=== PATIENT | female | born 1960 | race Caucasian/White ===

== ENCOUNTER → 2016-08-21 | Outpatient (CLI) | payer OTHER ==
[2016-08-21 09:44] LABS: Basophils # (auto) 0 uL; Basophils % (auto) 0.7 % (0.0-2.0); Eosinophils # (auto) 0 uL; Eosinophils % (auto) 0.6 % (0.0-7.0); Hematocrit 39.8 % (36.0-46.0); Hemoglobin 13.4 g/dL (12.2-16.2); Lymphocytes # (auto) 1.4 uL; Lymphocytes % (auto) 48.9 % (10.0-50.0); Mean Corpuscular Hemoglobin 29.6 pg (28.0-32.0); Mean Corpuscular Hgb Conc. 33.5 g/dL (32.0-36.0); Mean Corpuscular Volume 88.2 fL (80.0-100.0); Mean Platelet Volume 8.7 fL (7.4-10.4); Monocytes # (auto) 0.2 uL; Monocytes % (auto) 7.3 % (0.0-12.0); Neutrophils # (auto) 1.2 uL; Neutrophils % (auto) 42.5 % (37.0-80.0); Platelet Count (auto) 310 10^3/uL (140-450); Red Cell Distribution Width 13.7 % (11.6-16.0); White Blood Cell 2.8 10^3/uL (4.4-10.8)
[2016-08-21 10:30] LABS: Albumin 4.2 g/dL (3.4-5.0); BUN/Creatinine Ratio 20.3; Bilirubin, Total 0.5 mg/dL (0.2-1.0); Calcium 8.8 mg/dL (8.5-10.1); Potassium 4.2 mmol/L (3.5-5.1); Total Protein 8.4 g/dL (6.4-8.2)
== END | disposition home or self-care (01) ==
LOC: LAB 08:57
DX: M25.50 Pain in unspecified joint (principal); M25.00 Hemarthrosis, unspecified joint; Z79.899 Other long term (current) drug therapy; D64.9 Anemia, unspecified; I10 Essential (primary) hypertension
CPT/HCPCS: 36415; 80053; 85025; 85652; 86141

== ENCOUNTER → 2016-09-27 | Outpatient (CLI) | payer OTHER ==
[2016-09-27 08:42] LABS: Basophils # (auto) 0 uL; Basophils % (auto) 0.8 % (0.0-2.0); Eosinophils # (auto) 0.1 uL; Eosinophils % (auto) 4.5 % (0.0-7.0); Hematocrit 39.2 % (36.0-46.0); Hemoglobin 13.2 g/dL (12.2-16.2); Lymphocytes # (auto) 0.9 uL; Lymphocytes % (auto) 28.1 % (10.0-50.0); Mean Corpuscular Hemoglobin 29.9 pg (28.0-32.0); Mean Corpuscular Hgb Conc. 33.6 g/dL (32.0-36.0); Mean Platelet Volume 8.8 fL (7.4-10.4); Monocytes # (auto) 0.3 uL; Neutrophils # (auto) 1.7 uL; Neutrophils % (auto) 56.6 % (37.0-80.0); Platelet Count (auto) 296 10^3/uL (140-450); Red Cell Distribution Width 13.8 % (11.6-16.0)
[2016-09-27 09:06] LABS: Cholesterol 221 mg/dL (< 200); HDL Cholesterol 64 mg/dL (40-59); LDL Cholesterol 147 mg/dL (< 100); Triglycerides 58 mg/dL (< 150)
== END | disposition home or self-care (01) ==
LOC: LAB 08:03
PROVIDERS: ATTEND Internal Medicine
DX: R73.01 Impaired fasting glucose (principal); D72.819 Decreased white blood cell count, unspecified; R61 Generalized hyperhidrosis
CPT/HCPCS: 36415; 80061; 82306; 83001; 83036; 84439; 84443; 85025

== ENCOUNTER 2016-11-02 08:14 | Day surgery (SDC) | payer OTHER ==
[2016-10-30 12:27] LABS: Basophils # (auto) 0 uL; Basophils % (auto) 0.7 % (0.0-2.0); Eosinophils # (auto) 0.1 uL; Eosinophils % (auto) 2.7 % (0.0-7.0); Hematocrit 40.3 % (36.0-46.0); Hemoglobin 13.4 g/dL (12.2-16.2); Lymphocytes # (auto) 1.4 uL; Lymphocytes % (auto) 42.6 % (10.0-50.0); Mean Corpuscular Hemoglobin 29.5 pg (28.0-32.0); Mean Corpuscular Hgb Conc. 33.3 g/dL (32.0-36.0); Mean Corpuscular Volume 88.8 fL (80.0-100.0); Mean Platelet Volume 9.2 fL (7.4-10.4); Monocytes # (auto) 0.3 uL; Monocytes % (auto) 10.7 % (0.0-12.0); Neutrophils # (auto) 1.4 uL; Neutrophils % (auto) 43.3 % (37.0-80.0); Platelet Count (auto) 327 10^3/uL (140-450); Red Cell Distribution Width 13.8 % (11.6-16.0); White Blood Cell 3.3 10^3/uL (4.4-10.8)
[2016-10-30 12:48] LABS: INR 0.98 (0.9-1.15); Partial Thromboplastin Time 27.2 sec (22.64-33.71); Prothrombin Time 10.6 sec (9.37-12.3)
[~2016-11-02] VITALS: Ht 170.2 cm; Wt 90.7 kg
[~2016-11-02 08:14] MED LIST: HYDR200T PO; LEVO100T8 PO
[2016-11-02] MEDS ORDERED: diphenhdrAMINE HCL 50 MG/1 ML VL ONE (08:16)
[2016-11-02] MEDS ORDERED: SODIUM CHLORIDE LOCK 10 ML ONE (08:16)
[2016-11-02] MEDS: MIDAZOLAM HCL 5 MG/ML-1ML VIAL ONE ×2 (09:02→09:10)
[2016-11-02] MEDS: fentaNYL CITRATE 100 MCG/2 ML VL ONE ×2 (09:02→09:10)
[2016-11-02 10:10] VITALS: BP 121/75
== END 2016-11-02 10:10 | disposition home or self-care (01) ==
LOC: GI 08:14
PROVIDERS: ATTEND Internal Medicine Gastroenterology
DX: Z12.11 Encounter for screening for malignant neoplasm of colon (principal); K64.4 Residual hemorrhoidal skin tags; K64.8 Other hemorrhoids; K57.30 Diverticulosis of large intestine without perforation or abscess without bleeding; J45.909 Unspecified asthma, uncomplicated
CPT/HCPCS: 36415; 45378; 85025; 85610; 85730; J1200; J2250; J3010; J7030

== ENCOUNTER → 2017-10-11 | Outpatient (CLI) | payer OTHER ==
[2017-10-11 10:31] LABS: Basophils # (auto) 0 uL; Eosinophils # (auto) 0.1 uL; Eosinophils % (auto) 1.9 % (0.0-7.0); Hematocrit 39.6 % (36.0-46.0); Hemoglobin 13.2 g/dL (12.2-16.2); Lymphocytes # (auto) 0.7 uL; Lymphocytes % (auto) 20.7 % (10.0-50.0); Mean Corpuscular Hemoglobin 29.9 pg (28.0-32.0); Mean Corpuscular Hgb Conc. 33.2 g/dL (32.0-36.0); Mean Corpuscular Volume 90.2 fL (80.0-100.0); Monocytes # (auto) 0.3 uL; Monocytes % (auto) 9.3 % (0.0-12.0); Neutrophils # (auto) 2.3 uL; Neutrophils % (auto) 67.1 % (37.0-80.0); Nucleated Red Blood Cells % 0.1 %; Platelet Count (auto) 256 10^3/uL (140-450); Red Blood Cells 4.39 10^6/uL (4.0-5.20); Red Cell Distribution Width 13.9 % (11.8-14.3); White Blood Cell 3.4 10^3/uL (4.4-10.8)
[2017-10-11 10:38] LABS: Urine Bacteria NONE SEEN /hpf (None Seen); Urine Blood Negative /uL (Negative); Urine Specific Gravity 1.025 (1.001-1.035); Urine WBC <1 /hpf (0 - 5)
[2017-10-11 12:00] LABS: Albumin 4.1 g/dL (3.4-5.0); Bilirubin, Total 0.5 mg/dL (0.2-1.0); CRP High Sensitivity 1.78 mg/dL (< 0.3); Potassium 4.4 mmol/L (3.5-5.1); Total Protein 8.7 g/dL (6.4-8.2); Uric Acid 3.5 mg/dL (2.6-6.0)
== END | disposition home or self-care (01) ==
LOC: LAB 10:11
PROVIDERS: ATTEND Internal Medicine
DX: J20.2 Acute bronchitis due to streptococcus (principal); N39.41 Urge incontinence; M25.50 Pain in unspecified joint; E03.9 Hypothyroidism, unspecified; I10 Essential (primary) hypertension; Z79.899 Other long term (current) drug therapy
CPT/HCPCS: 36415; 80053; 80061; 81001; 84439; 84443; 84550; 85025; 85652; 86141; 86225; 86235

== ENCOUNTER → 2018-02-27 | Outpatient (CLI) | payer OTHER ==
[~2018-02-27] MED LIST changes: +HYDR-4441 PO; -HYDR200T PO
[2018-02-27 10:52] LABS: Basophils # (auto) 0 uL; Basophils % (auto) 1.1 % (0.0-2.0); Eosinophils # (auto) 0 uL; Eosinophils % (auto) 1.4 % (0.0-7.0); Hematocrit 39.6 % (36.0-46.0); Lymphocytes # (auto) 1.1 uL; Lymphocytes % (auto) 48.5 % (10.0-50.0); Mean Corpuscular Hemoglobin 29.5 pg (28.0-32.0); Mean Corpuscular Hgb Conc. 32.8 g/dL (32.0-36.0); Mean Corpuscular Volume 90.2 fL (80.0-100.0); Monocytes # (auto) 0.2 uL; Neutrophils # (auto) 0.9 uL; Nucleated Red Blood Cells % 0.1 %; Platelet Count (auto) 304 10^3/uL (140-450); Red Blood Cells 4.39 10^6/uL (4.0-5.20); Red Cell Distribution Width 13.6 % (11.8-14.3); White Blood Cell 2.3 10^3/uL (4.4-10.8)
[2018-02-27 11:17] LABS: Creatine Kinase IFCC 302 U/L (26-192); Lactate Dehydrogenase 173 U/L (84-246)
[2018-02-27 11:20] LABS: Free T4 (Free Thyroxine) 1.34 ng/dL (0.89-1.76)
[2018-03-05 10:07] LABS: AChR Blocking Abs, Serum 16 % (0-25)
== END | disposition home or self-care (01) ==
LOC: LAB 09:55
PROVIDERS: ATTEND Internal Medicine
DX: E03.9 Hypothyroidism, unspecified (principal); D72.819 Decreased white blood cell count, unspecified; M79.1 Myalgia
CPT/HCPCS: 36415; 82306; 82550; 82607; 83615; 84439; 84443; 85025; 86200; 86431

== ENCOUNTER → 2018-03-27 | Outpatient (CLI) | payer OTHER | END | disposition home or self-care (01) | LOC: XYW 08:08 | PROVIDERS: ATTEND Internal Medicine | DX: R06.00 Dyspnea, unspecified (principal) | CPT/HCPCS: 93306 ==

== ENCOUNTER → 2018-10-16 | Outpatient (CLI) | payer OTHER ==
[2018-10-16 12:43] LABS: Hematocrit 40.3 % (36.0-46.0); Hemoglobin 13.5 g/dL (12.2-16.2); Mean Corpuscular Hemoglobin 30.2 pg (28.0-32.0); Mean Corpuscular Hgb Conc. 33.6 g/dL (32.0-36.0); Mean Corpuscular Volume 89.9 fL (80.0-100.0); Platelet Count (auto) 277 10^3/uL (140-450); Red Blood Cells 4.48 10^6/uL (4.0-5.20); Red Cell Distribution Width 13.2 % (11.8-14.3); White Blood Cell 2.4 10^3/uL (4.4-10.8)
[2018-10-16 13:02] LABS: Band Neutrophils % (manual) 0; Basophils % (manual) 0 (0.0-2.0); Blast Cells 0; Metamyelocytes % 0; Myelocytes % 0; Promyelocytes % 0; Reactive Lymphocytes 0
[2018-10-16 13:09] LABS: Urine Bacteria NONE SEEN /hpf (None Seen); Urine Blood 3+ /uL (Negative); Urine Mucus FEW (None Seen); Urine Specific Gravity 1.021 (1.001-1.035); Urine WBC 5 /hpf (0 - 5)
[2018-10-16 13:30] LABS: Albumin 4.2 g/dL (3.4-5.0); Potassium 3.8 mmol/L (3.5-5.1)
[2018-10-16 13:37] LABS: BUN/Creatinine Ratio 15.2; Bilirubin, Total 0.5 mg/dL (0.2-1.0); Total Protein 8.2 g/dL (6.4-8.2)
[2018-10-16 15:47] LABS: Eosinophils % (manual) 2 (0-7); Lymphocytes % (manual) 60 (10.0-50.0); Monocytes % (manual) 4 (0-12)
== END | disposition home or self-care (01) ==
LOC: LAB 11:42
PROVIDERS: ATTEND Internal Medicine
DX: D72.819 Decreased white blood cell count, unspecified (principal); M06.9 Rheumatoid arthritis, unspecified; M25.50 Pain in unspecified joint
CPT/HCPCS: 36415; 80053; 80061; 81001; 82043; 83615; 84439; 84443; 85007; 85027; 85652; 86200

== ENCOUNTER → 2018-12-11 | Outpatient (CLI) | payer OTHER ==
[2018-12-11 10:00] LABS: Basophils # (auto) 0 uL; Basophils % (auto) 0.9 % (0.0-2.0); Eosinophils # (auto) 0 uL; Eosinophils % (auto) 1.1 % (0.0-7.0); Hematocrit 38.7 % (36.0-46.0); Hemoglobin 12.8 g/dL (12.2-16.2); Lymphocytes % (auto) 43.6 % (10.0-50.0); Mean Corpuscular Hemoglobin 30.1 pg (28.0-32.0); Mean Corpuscular Hgb Conc. 33.1 g/dL (32.0-36.0); Monocytes # (auto) 0.2 uL; Monocytes % (auto) 10.9 % (0.0-12.0); Neutrophils % (auto) 43.5 % (37.0-80.0); Nucleated Red Blood Cells % 0.1 %; Platelet Count (auto) 260 10^3/uL (140-450); Red Blood Cells 4.25 10^6/uL (4.0-5.20); Red Cell Distribution Width 14.1 % (11.8-14.3); White Blood Cell 2.2 10^3/uL (4.4-10.8)
[2018-12-11 10:50] LABS: Potassium 4.2 mmol/L (3.5-5.1)
[2018-12-11 10:58] LABS: BUN/Creatinine Ratio 14.7; Bilirubin, Total 0.5 mg/dL (0.2-1.0); Calcium 8.9 mg/dL (8.5-10.1); Total Protein 7.8 g/dL (6.4-8.2)
== END | disposition home or self-care (01) ==
LOC: LAB 09:19
PROVIDERS: ATTEND Internal Medicine
DX: M75.81 Other shoulder lesions, right shoulder (principal)
CPT/HCPCS: 36415; 80053; 83615; 85025; 86038

== ENCOUNTER → 2019-12-10 | Outpatient (CLI) | payer OTHER ==
[~2019-12-10] MED LIST changes: +HYDR-4188 PO; -HYDR-4441 PO
[2019-12-10 12:33] LABS: Basophils # (auto) 0 10 ^3/uL (0-0.2); Basophils % (auto) 1.7 % (0.0-2.0); Eosinophils # (auto) 0 10 ^3/uL (0-0.8); Eosinophils % (auto) 1.3 % (0.0-7.0); Hematocrit 39.7 % (36.0-46.0); Hemoglobin 13.2 g/dL (12.2-16.2); Lymphocytes # (auto) 1.1 10 ^3/uL (0.4-5.4); Lymphocytes % (auto) 45.4 % (10.0-50.0); Mean Corpuscular Hemoglobin 29.7 pg (28.0-32.0); Mean Corpuscular Hgb Conc. 33.2 g/dL (32.0-36.0); Mean Corpuscular Volume 89.5 fL (80.0-100.0); Monocytes # (auto) 0.2 10 ^3/uL (0-1.3); Monocytes % (auto) 9.4 % (0.0-12.0); Neutrophils % (auto) 42.2 % (37.0-80.0); Nucleated Red Blood Cells % 0.1 %; Platelet Count (auto) 285 10^3/uL (140-450); Red Blood Cells 4.43 10^6/uL (4.0-5.20); Red Cell Distribution Width 13.8 % (11.8-14.3); White Blood Cell 2.5 10^3/uL (4.4-10.8)
[2019-12-10 12:41] LABS: Urine Bacteria NONE SEEN /hpf (None Seen); Urine Blood Negative /uL (Negative); Urine Mucus FEW (None Seen); Urine Specific Gravity 1.021 (1.001-1.035); Urine WBC 1 /hpf (0 - 5)
[2019-12-10 13:33] LABS: Albumin 4.2 g/dL (3.4-5.0); BUN/Creatinine Ratio 14.3; Bilirubin, Total 0.6 mg/dL (0.2-1.0); Total Protein 8.1 g/dL (6.4-8.2)
== END | disposition home or self-care (01) ==
LOC: LAB 11:57
PROVIDERS: ATTEND Internal Medicine
DX: D72.819 Decreased white blood cell count, unspecified (principal); M32.9 Systemic lupus erythematosus, unspecified
CPT/HCPCS: 36415; 80053; 80061; 81001; 84439; 84443; 85025; 85652; 86225; 86235

== ENCOUNTER → 2020-12-02 | Outpatient (CLI) | payer OTHER ==
[2020-12-02 11:07] LABS: Hematocrit 38.1 % (36.0-46.0); Hemoglobin 13.1 g/dL (12.2-16.2); Mean Corpuscular Hemoglobin 30.6 pg (28.0-32.0); Mean Corpuscular Hgb Conc. 34.3 g/dL (32.0-36.0); Mean Corpuscular Volume 89.2 fL (80.0-100.0); Platelet Count (auto) 247 10^3/uL (140-450); Red Blood Cells 4.27 10^6/uL (4.0-5.20); Red Cell Distribution Width 13.6 % (11.8-14.3); White Blood Cell 2.4 10^3/uL (4.4-10.8)
[2020-12-02 11:14] LABS: Band Neutrophils % (manual) 0; Basophils % (manual) 0 (0.0-2.0); Blast Cells 0; Metamyelocytes % 0; Myelocytes % 0; Promyelocytes % 0; Reactive Lymphocytes 0; Urine Bacteria NONE SEEN /hpf (None Seen); Urine Blood Negative /uL (Negative); Urine WBC <1 /hpf (0 - 5)
[2020-12-02 11:45] LABS: BUN/Creatinine Ratio 14.8; Bilirubin, Total 0.4 mg/dL (0.2-1.0); Total Protein 7.9 g/dL (6.4-8.2)
[2020-12-02 12:03] LABS: Eosinophils % (manual) 2 (0-7); Lymphocytes % (manual) 61 (10.0-50.0); Monocytes % (manual) 6 (0-12)
== END | disposition home or self-care (01) ==
LOC: LAB 10:47
PROVIDERS: ATTEND Internal Medicine
DX: E03.9 Hypothyroidism, unspecified (principal); M35.00 Sjogren syndrome, unspecified
CPT/HCPCS: 36415; 80053; 80061; 81001; 84439; 84443; 85007; 85027; 85652; 86225; 86235

== ENCOUNTER → 2021-06-29 | Outpatient (CLI) | payer OTHER ==
[2021-06-29 11:31] LABS: Basophils # (auto) 0 10 ^3/uL (0-0.2); Basophils % (auto) 1.3 % (0.0-2.0); Eosinophils # (auto) 0 10 ^3/uL (0-0.8); Eosinophils % (auto) 1.3 % (0.0-7.0); Hematocrit 39.2 % (36.0-46.0); Hemoglobin 13.1 g/dL (12.2-16.2); Lymphocytes # (auto) 1.2 10 ^3/uL (0.4-5.4); Lymphocytes % (auto) 44.5 % (10.0-50.0); Mean Corpuscular Hemoglobin 30.2 pg (28.0-32.0); Mean Corpuscular Hgb Conc. 33.5 g/dL (32.0-36.0); Mean Corpuscular Volume 90.2 fL (80.0-100.0); Monocytes # (auto) 0.2 10 ^3/uL (0-1.3); Monocytes % (auto) 8.5 % (0.0-12.0); Neutrophils # (auto) 1.2 10 ^3/uL (1.6-8.6); Neutrophils % (auto) 44.4 % (37.0-80.0); Nucleated Red Blood Cells % 0.1 %; Red Blood Cells 4.35 10^6/uL (4.0-5.20); Red Cell Distribution Width 14.3 % (11.8-14.3); White Blood Cell 2.6 10^3/uL (4.4-10.8)
[2021-06-29 12:01] LABS: Urine Bacteria NONE SEEN /hpf (None Seen); Urine Blood Negative /uL (Negative); Urine Specific Gravity 1.015 (1.001-1.035); Urine WBC 1 /hpf (0 - 5)
[2021-06-29 12:02] LABS: Albumin 4.2 g/dL (3.4-5.0); Calcium 8.9 mg/dL (8.5-10.1); Potassium 4.6 mmol/L (3.5-5.1)
[2021-06-29 12:05] LABS: BUN/Creatinine Ratio 12.7; Bilirubin, Total 0.5 mg/dL (0.2-1.0); CRP High Sensitivity 0.08 mg/dL (< 0.3); Total Protein 7.7 g/dL (6.4-8.2)
== END | disposition home or self-care (01) ==
LOC: LAB 10:48
PROVIDERS: ATTEND Internal Medicine Rheumatology
DX: M32.10 Systemic lupus erythematosus, organ or system involvement unspecified (principal)
CPT/HCPCS: 36415; 80053; 81001; 82085; 82550; 85025; 85652; 86141; 86160

== ENCOUNTER → 2021-12-23 | Outpatient (CLI) | payer OTHER ==
[2021-12-23 11:17] LABS: Urine Bacteria NONE SEEN /hpf (None Seen); Urine Blood Negative /uL (Negative); Urine Specific Gravity 1.007 (1.001-1.035); Urine WBC <1 /hpf (0 - 5)
[2021-12-23 11:33] LABS: Cholesterol 246 mg/dL (< 200); HDL Cholesterol 75 mg/dL (40-59); LDL Cholesterol 158 mg/dL (< 100); Triglycerides 62 mg/dL (< 150)
[2021-12-23 11:35] LABS: Free T4 (Free Thyroxine) 1.23 ng/dL (0.89-1.76)
[2021-12-23 11:44] LABS: Thyroid Stimulating Hormone 2.69 uIU/mL (0.358-3.74)
== END | disposition home or self-care (01) ==
LOC: LAB 10:45
PROVIDERS: ATTEND Internal Medicine
DX: D72.819 Decreased white blood cell count, unspecified (principal); E03.9 Hypothyroidism, unspecified; E55.9 Vitamin D deficiency, unspecified
CPT/HCPCS: 36415; 80061; 81001; 82306; 82607; 83615; 84439; 84443

== ENCOUNTER → 2022-06-20 | Outpatient (CLI) | payer OTHER ==
[2022-06-20 10:30] LABS: Urine WBC None Seen /hpf (0 - 5)
[2022-06-20 11:17] LABS: Urine Bacteria NONE SEEN /hpf (None Seen); Urine Blood Negative /uL (Negative); Urine Mucus FEW (None Seen); Urine Specific Gravity 1.017 (1.001-1.035)
== END | disposition home or self-care (01) ==
LOC: LAB 10:14
PROVIDERS: ATTEND Internal Medicine
DX: D17.1 Benign lipomatous neoplasm of skin and subcutaneous tissue of trunk (principal); N39.0 Urinary tract infection, site not specified
CPT/HCPCS: 36415; 81001; 82565; 84520; 87086

== ENCOUNTER → 2022-08-08 | Outpatient (CLI) | payer OTHER ==
[2022-08-08 08:57] LABS: Urine WBC None Seen /hpf (0 - 5)
[2022-08-08 09:01] LABS: Basophils # (auto) 0 10 ^3/uL (0-0.2); Basophils % (auto) 1.5 % (0.0-2.0); Eosinophils # (auto) 0 10 ^3/uL (0-0.8); Eosinophils % (auto) 1.6 % (0.0-7.0); Hematocrit 37.6 % (36.0-46.0); Hemoglobin 12.5 g/dL (12.2-16.2); Lymphocytes # (auto) 1.1 10 ^3/uL (0.4-5.4); Lymphocytes % (auto) 44.3 % (10.0-50.0); Mean Corpuscular Hemoglobin 30.1 pg (28.0-32.0); Mean Corpuscular Hgb Conc. 33.1 g/dL (32.0-36.0); Mean Corpuscular Volume 90.9 fL (80.0-100.0); Monocytes # (auto) 0.2 10 ^3/uL (0-1.3); Monocytes % (auto) 8.4 % (0.0-12.0); Neutrophils # (auto) 1.1 10 ^3/uL (1.6-8.6); Neutrophils % (auto) 44.2 % (37.0-80.0); Nucleated Red Blood Cells % 0.1 %; Red Blood Cells 4.13 10^6/uL (4.0-5.20); Red Cell Distribution Width 13.6 % (11.8-14.3); White Blood Cell 2.4 10^3/uL (4.4-10.8)
[2022-08-08 09:09] LABS: Urine Bacteria NONE SEEN /hpf (None Seen); Urine Blood Negative /uL (Negative); Urine Mucus FEW (None Seen); Urine Specific Gravity 1.018 (1.001-1.035)
[2022-08-08 10:25] LABS: Albumin 3.7 g/dL (3.4-5.0); BUN/Creatinine Ratio 16.9; Bilirubin, Total 0.5 mg/dL (0.2-1.0); Calcium 8.7 mg/dL (8.5-10.1); Total Protein 7.4 g/dL (6.4-8.2)
== END | disposition home or self-care (01) ==
LOC: LAB 08:33
PROVIDERS: ATTEND Internal Medicine
DX: E55.9 Vitamin D deficiency, unspecified (principal); N83.201 Unspecified ovarian cyst, right side; M35.00 Sjogren syndrome, unspecified
CPT/HCPCS: 36415; 80053; 80061; 81001; 84439; 84443; 85025; 85652; 86304

== ENCOUNTER → 2024-01-11 | Outpatient (CLI) | payer OTHER ==
[~2024-01-11] MED LIST changes: -HYDR-4188 PO; +HYDR-4491 PO
[2024-01-11 11:48] LABS: Urine Bacteria None Seen /hpf (None Seen)
[2024-01-11 11:53] LABS: Basophils # (auto) 0 10 ^3/uL (0-0.2); Basophils % (auto) 1.2 % (0.0-2.0); Eosinophils # (auto) 0 10 ^3/uL (0-0.8); Eosinophils % (auto) 1.2 % (0.0-7.0); Hematocrit 37.2 % (36.0-46.0); Hemoglobin 12.5 g/dL (12.2-16.2); Lymphocytes # (auto) 1.3 10 ^3/uL (0.4-5.4); Lymphocytes % (auto) 50.7 % (10.0-50.0); Mean Corpuscular Hemoglobin 30.4 pg (28.0-32.0); Mean Corpuscular Hgb Conc. 33.7 g/dL (32.0-36.0); Mean Corpuscular Volume 90.2 fL (80.0-100.0); Monocytes # (auto) 0.3 10 ^3/uL (0-1.3); Monocytes % (auto) 9.6 % (0.0-12.0); Neutrophils % (auto) 37.3 % (37.0-80.0); Nucleated Red Blood Cells % 0.1 %; Red Blood Cells 4.13 10^6/uL (4.0-5.20); Red Cell Distribution Width 13.6 % (11.8-14.3); White Blood Cell 2.7 10^3/uL (4.4-10.8)
[2024-01-11 12:06] LABS: Urine Blood Negative /uL (Negative); Urine Clarity Clear (Clear); Urine Color Light-Yellow (Yellow); Urine Protein, UAD Negative (Negative); Urine Specific Gravity 1.018 (1.001-1.035); Urine Urobilinogen Normal (Negative); Urine WBC 1 /hpf (0 - 5)
[2024-01-11 12:35] LABS: Erythrocyte Sedimentation Rate 13 mm/hr (0-20)
[2024-01-11 12:48] LABS: Alanine Aminotransferase 26 U/L (7-40); Albumin 4.6 g/dL (3.2-4.8); Alkaline Phosphatase 73 U/L (46-116); Anion Gap 4 (5-15); Aspartate Aminotransferase 16 U/L (13-40); BUN/Creatinine Ratio 16.2 (10.0-20.0); Blood Urea Nitrogen 12 mg/dL (9-23); CRP High Sensitivity 0.05 mg/dL (<1.0); Calcium 9.6 mg/dL (8.7-10.4); Carbon Dioxide 29 mmol/L (20-30); Chloride 104 mmol/L (98-107); Glucose 102 mg/dL (74-106); Potassium 4.1 mmol/L (3.5-5.1); Sodium 137 mmol/L (136-145)
[2024-01-11 12:49] LABS: Bilirubin, Total 0.7 mg/dL (0.2-1.0); Total Protein 7.4 g/dL (5.7-8.2)
[2024-01-11 13:56] LABS: Protein, Urine 7.1 mg/dL (0.0-11.9)
[2024-01-11 13:59] LABS: Creatinine, Urine 81.43 mg/dL (30.0-125.0); Urine Protein/Creatinine Ratio 0.09
== END | disposition home or self-care (01) ==
LOC: LAB 11:25
PROVIDERS: ATTEND Internal Medicine Rheumatology
DX: M54.50 Low back pain, unspecified (principal); E66.9 Obesity, unspecified; M35.00 Sjogren syndrome, unspecified; M32.10 Systemic lupus erythematosus, organ or system involvement unspecified
CPT/HCPCS: 36415; 80053; 81001; 82570; 84156; 85025; 85652; 86141